=== PATIENT | female | born 1985 | race Caucasian/White ===

== ENCOUNTER 2017-02-09 03:30 | Inpatient (IN) | payer BC ==
[2017-02-09] MEDS ORDERED: Water For Irrigation,Sterile 1,000 ML Container IRR PRN (05:00)
[2017-02-09] MEDS ORDERED: Lactated Ringers 1,000 ML IV SCH (05:00)
[2017-02-09] MEDS ORDERED: Lidocaine 1% 50 ML MDV ONE (05:03)
[2017-02-09] MEDS ORDERED: Oxytocin/Lactated Ringers 30 UNIT/500 ML BAG ONE (05:11)
--- NOTE | 2017-02-09 05:15 | PCM.SN ---
- Free Text/Narrative Note: Notified by nursing that pt is complete with meconium present on rupture of membranes. At bedside for delivery.
[2017-02-09] MEDS ORDERED: Nalbuphine 10 MG/1 ML Vial IVPUSH PRN (06:17)
[2017-02-09] MEDS ORDERED: Lidocaine 1% 50 ML MDV INJECT PRN (06:17)
[2017-02-09] MEDS ORDERED: Carboprost Tromethamine 250 MCG/1 ML Amp IM PRN (06:17)
[2017-02-09] MEDS ORDERED: Sodium Chloride 0.9% 2.5 ML Syringe FLUSH PRN (06:17)
[2017-02-09] MEDS ORDERED: Methylergonovine 0.2 MG/1 ML Amp IM PRN (06:17)
[2017-02-09] MEDS ORDERED: Sodium Chloride 0.9% 10 ML Syringe FLUSH PRN (06:17)
[2017-02-09] MEDS ORDERED: Misoprostol 200 MCG Tab PO PRN (06:17)
[2017-02-09] MEDS ORDERED: Butorphanol 1 MG/ML SDV IVPUSH PRN (06:17)
[2017-02-09] MEDS ORDERED: Ibuprofen 600 MG Tab ONE (06:27)
[2017-02-09] MEDS ORDERED: Bisacodyl 10 MG Supp RECTAL PRN (06:29)
[2017-02-09] MEDS ORDERED: oxyCODONE 5 MG Tab PO PRN (06:29)
[2017-02-09] MEDS ORDERED: Acetaminophen 500 MG Tab PO PRN (06:29)
[2017-02-09] MEDS ORDERED: Ibuprofen 800 MG Tab PO PRN (06:29)
[2017-02-09] MEDS ORDERED: Witch Hazel Medicated Pads 40/Jar TOP PRN (06:29)
[2017-02-09] MEDS ORDERED: Lanolin 100% Cream 7 GM Tube TOP PRN (06:29)
[2017-02-09] MEDS ORDERED: Benzocaine/Menthol 20%-0.5% Spray 78 GM Cannister TOP PRN (06:29)
[2017-02-09] MEDS ORDERED: Ibuprofen 600 MG Tab PO ONE (06:30)
[2017-02-09] MEDS ORDERED: Oxytocin/Lactated Ringers 30 UNIT/500 ML BAG IV SCH (06:30)
[2017-02-09] MEDS: Docusate Sodium 100 MG Cap PO PRN (09:01)
[2017-02-09] MEDS: Ibuprofen 600 MG Tab PO PRN ×2 (13:44→23:25)
--- NOTE | 2017-02-09 14:54 | OR ---
SURGEON: Lissette Salinas M.D. DATE OF PROCEDURE: 02/09/2017 PREOPERATIVE DIAGNOSES: Thirty-nine week intrauterine , active spontaneous labor. POSTOPERATIVE DIAGNOSES: Thirty-nine week intrauterine , active spontaneous labor, and precipitous labor. ANESTHESIA: Pudendal. ESTIMATED BLOOD LOSS: Less than 300 mL. FINDINGS: Live born male, score 9 and 9. Weight is 3420 g. Placenta spontaneous, Schultze intact, with 3 vessels. Second-degree perineal laceration repaired. COMPLICATIONS: None known. DISPOSITION: Stable to recovery. HISTORY: This is a 31-year-old female, she is G1, P0. She presents at 39 weeks' gestation in active spontaneous labor. She does have a history of shoulder dystocia with her prior delivery. She presented to Labor and Delivery 3 cm dilated. From the time of presentation until delivery was 45 minutes. DESCRIPTION OF PROCEDURE: With the patient in the dorsal lithotomy position, the patient was complete. The fetus was in a direct OP position. The patient desired analgesia. Therefore, I did offer her pudendal block which was performed by placing 10 mL of 1% lidocaine, 1.5 cm medial and inferior to the sacral spine on the right and the left. With that, she had good pudendal analgesia. She continued to push over 3 contractions at which time the head was delivered spontaneously over the perineum with support in a direct OP position, with subsequent delivery of the 's shoulders and body without any difficulty. Meconium had been noted at the time of rupture of membranes which occurred immediately prior to delivery. Therefore, DeLee suction was performed as well as bulb suctioning. The cord was clamped x2 and cut after it had ceased to pulsate and the was handed to the mother in the presence of the nurse attending delivery. The infant was a liveborn male, score 9 and 9 weighing 3420 g. Cord blood was collected for cord ABGs as well as routine cord blood sampling. Pitocin had been initiated after delivery of the infant to assist with delivery of the placenta which was delivered spontaneously, Schultze intact with 3 vessels. Upon inspection of the pelvis and perineum, there were no periurethral, vaginal sidewall, cervical, or rectal lacerations. There was a second-degree perineal laceration over the site of prior tear. This was repaired after additional 20 mL of 1% lidocaine was injected into the perineal tissues with excellent analgesia. A running locked suture of 3-0 Caprosyn for the vaginal mucosa was utilized followed by a deep running suture of the same for the perineum and a subcuticular suture of the same for the skin. Final sponge, needle, and instrument counts were correct. There were no known complications. Mother and remained in LDRP in good condition. KWAN LEE /[id number]
[2017-02-10] MEDS: Docusate Sodium 100 MG Cap PO PRN (07:49)
[2017-02-10 07:59] VITALS: BP 119/61
--- NOTE | 2017-02-10 09:12 | PCM.PNPP ---
- General Info Date of Service: 02/10/17 Functional Status: Reports: pain controlled, tolerating diet, ambulating, urinating - Review of Systems General: Denies: Fever, Fatigue, Chills Pulmonary: Denies: shortness of breath, pleuritic chest pain, cough Cardiovascular: Denies: Chest Pain, Palpitations, Dyspnea on Exertion Genitourinary: Denies: dysuria, incontinence Neurological: Denies: Headache Psychiatric: Denies: confusion, depression, mood lability - Patient Data Vital Signs - most recent: Last Vital Signs Temp 36.2 C 02/10/17 07:59 Pulse 92 02/10/17 07:59 Resp 18 02/10/17 07:59 BP 119/61 02/10/17 07:59 Pulse Ox 97 02/10/17 07:59 Weight - most recent: 190 lb Lab Results - last 24 hrs: Laboratory Results - last 24 hr 02/10/17 Range/Units 04:49 Hgb 11.7 L (12.0-16.0) g/dL Hct 36.5 (36.0-46.0) % Med Orders - Current: Current Medications Acetaminophen (Tylenol Extra Strength) 1,000 mg PO Q4H PRN PRN Reason: Pain Last Admin: 02/09/17 08:59 Dose: 1,000 mg Benzocaine/Menthol (Dermoplast Pain Relief 20%-0.5% Snelling) 78 gm TOP ASDIRECTED PRN PRN Reason: Perineal Comfort Measure Bisacodyl (Dulcolax) 10 mg RECTAL .ONCE PRN PRN Reason: Constipation Docusate Sodium (Colace) 100 mg PO BID PRN PRN Reason: Constipation Last Admin: 02/10/17 07:49 Dose: 100 mg Emollient Ointment (Lansinoh Hpa) 0 gm TOP ASDIRECTED PRN PRN Reason: Sore Nipples Ibuprofen (Motrin) 600 mg PO Q6H PRN PRN Reason: Pain Last Admin: 02/09/17 23:25 Dose: 600 mg Oxycodone HCl (Oxycodone) 5 mg PO Q2H PRN PRN Reason: Pain Witch Jailene (Tucks) 1 pad TOP ASDIRECTED PRN PRN Reason: comfort care Discontinued Medications Butorphanol Tartrate (Stadol) 1 mg IVPUSH Q1H PRN PRN Reason: Pain Carboprost Tromethamine (Hemabate Ds) 250 mcg IM ASDIRECTED PRN PRN Reason: Post Hemorrhage Oxytocin/Lactated Ringer's (Pitocin In Lr 30 Units/500 Ml) Confirm Administered Dose 30 unit in 500 mls @ as directed .ROUTE .STK-MED ONE Stop: 02/09/17 05:12 Lactated Ringer's (Ringers, Lactated) 1,000 mls @ 150 mls/hr IV ASDIRECTED PENELOPE Oxytocin/Lactated Ringer's (Pitocin In Lr 30 Units/500 Ml) 30 unit in 500 mls @ 999 mls/hr IV TITRATE PENELOPE PRN Reason: 999 MUNITS/MIN Stop: 02/09/17 07:01 Ibuprofen (Motrin) Confirm Administered Dose 600 mg .ROUTE .STK-MED ONE Stop: 02/09/17 06:28 Last Admin: 02/09/17 06:31 Dose: 600 mg Ibuprofen (Motrin) 600 mg PO Q6H PRN PRN Reason: Pain Ibuprofen (Motrin) 600 mg PO ONETIME ONE Stop: 02/09/17 06:31 Last Admin: 02/09/17 09:26 Dose: Not Given Lidocaine HCl (Xylocaine 1%) Confirm Administered Dose 50 ml .ROUTE .STK-MED ONE Stop: 02/09/17 05:04 Lidocaine HCl (Xylocaine 1%) 50 ml INJECT .ONCE PRN PRN Reason: Laceration repair Methylergonovine Maleate (Methergine) 0.2 mg IM ASDIRECTED PRN PRN Reason: Post Hemorrhage Misoprostol (Cytotec) 200 mcg PO .ONCE PRN PRN Reason: Post Hemorrhage Nalbuphine HCl (Nubain) 10 mg IVPUSH Q1H PRN PRN Reason: Pain (severe 7-10) Stop: 02/09/17 08:18 Sodium Chloride (Saline Flush) 10 ml FLUSH ASDIRECTED PRN PRN Reason: Keep Vein Open Sodium Chloride (Saline Flush) 2.5 ml FLUSH ASDIRECTED PRN PRN Reason: Keep Vein Open Sterile Water (Sterile Water For Irrigation) 1,000 ml IRR ASDIRECTED PRN PRN Reason: delivery - Interaction Support Person: - Recovery Exam Fundal Tone: Firm Fundal Level: 1 Fingerbreadths Below Umbilicus Fundal Placement: Midline Lochia Amount: Scant Lochia Color: Rubra/Red Perineum Description: Intact, Minimal Bruising/Swelling, Other (see below) Other Perinuem Description: second degree with repair Episiotomy/Laceration: Approximated Bladder Status: Voiding Urinary Elimination: Voided - Problem List & Annotations (1) Vaginal delivery SNOMED Code(s): 331106824 Code(s): O80 - ENCOUNTER FOR FULL-TERM UNCOMPLICATED DELIVERY Status: Acute Current Visit: Yes - Problem List Review Problem List Initiated/Reviewed/Updated: Yes - Assessment Assessment:: PPD#1 s/p , stable and afebrile - Plan Plan:: Discharge instructions reviewed Nothing in the vagina for 6 weeks Bleeding and infection precautions reviewed Continue PNV Follow up in 6 weeks
[2017-02-10] MEDS: Ibuprofen 600 MG Tab PO PRN (09:46)
== END 2017-02-10 11:40 | disposition home or self-care (01) | DRG 560 ==
LOC: MW.OBCHECK 03:30 → MW.OB 03:43 → MW.OBCHECK 04:31 → MW.OB 04:32 → OBSVTOIN 05:09
PROVIDERS: ADMIT Obstetrics & Gynecology; ATTEND Obstetrics & Gynecology
PROC: 10E0XZZ Delivery of Products of Conception, External Approach (ICD-10-PCS; principal; 2017-02-09)
PROC: 0KQM0ZZ Repair Perineum Muscle, Open Approach (ICD-10-PCS; 2017-02-09)
DX: O62.3 Precipitate labor (principal); O70.1 Second degree perineal laceration during delivery; O77.0 Labor and delivery complicated by meconium in amniotic fluid; Z3A.39 39 weeks gestation of pregnancy; Z37.0 Single live birth
CPT/HCPCS: 36415; 59025; 85014; 85018; 85027; 86850; 86900; 86901; A9270-GY